=== PATIENT | female | born 1965 ===

== ENCOUNTER 2017-10-10 09:30 | Emergency (ER) | payer MEDICAID ==
[2017-10-10 09:35] VITALS: TEMP 98.3
[2017-10-10 09:37] VITALS: BMI 26.0
--- NOTE | 2017-10-10 10:11 | ED PDOC ---
HPI: Eye Injury/Pain Time Seen by Provider: 10/10/17 09:47 Chief Complaint (Nursing): Eye Problem Chief Complaint (Provider): Eye Problem History Per: Patient History/Exam Limitations: no limitations Onset/Duration Of Symptoms: Days (2) Associated Symptoms: denies: Decreased Vision Additional Complaint(s): 52 years old female with history of hypercholesteremia presents to the ED for evaluation of redness to right eye corner onset 2 days. Patient reports she has been taking daily Aspirin as recommended by a pharmacist. She also complains of right sided headache and left shoulder pain. Patient denies any trauma, change in vision. weakness or numbness. PMD: non provided Past Medical History Reviewed: Historical Data, Nursing Documentation, Vital Signs Vital Signs: Last Vital Signs Temp 98.3 F 10/10/17 09:35 Pulse 61 10/10/17 09:35 Resp 18 10/10/17 09:35 BP 108/69 10/10/17 09:35 Pulse Ox 98 10/10/17 09:35 - Medical History PMH: Hypercholesterolemia - Surgical History Surgical History: No Surg Hx - Family History Family History: States: Unknown Family Hx - Social History Current smoker - smoking cessation education provided: No Alcohol: None Drugs: Denies - Immunization History Hx Tetanus Toxoid Vaccination: No Hx Influenza Vaccination: Yes Hx Pneumococcal Vaccination: No - Home Medications Home Medications: Ambulatory Orders Medication Instructions Recorded Naproxen [Naprosyn] 500 mg PO Q12H #20 tab 10/10/17 Tobramycin 0.3% [Tobramycin 5 Ml] 1 drop OP TID #1 bottle 10/10/17 - Allergies Allergies/Adverse Reactions: Allergies Allergy/AdvReac Type Severity Reaction Status Date / Time Unobtainable Allergy Verified 10/10/17 10:04 Review of Systems ROS Statement: Except As Marked, All Systems Reviewed And Found Negative Eyes: Positive for: Redness (right eye corner). Negative for: Vision Change, Other (trauma) Cardiovascular: Negative for: Chest Pain Musculoskeletal: Positive for: Shoulder Pain (left) Neurological: Positive for: Headache (right sided). Negative for: Weakness, Numbness Physical Exam - Reviewed Nursing Documentation Reviewed: Yes Vital Signs Reviewed: Yes - Physical Exam Appears: Positive for: Non-toxic, No Acute Distress Head Exam: Positive for: ATRAUMATIC, NORMOCEPHALIC Eye Exam: Positive for: EOMI, PERRL, Other (Right eye scleral hemorrhage lateral aspect) Cardiovascular/Chest: Positive for: Regular Rate, Rhythm. Negative for: Murmur Respiratory: Positive for: Normal Breath Sounds. Negative for: Respiratory Distress Gastrointestinal/Abdominal: Positive for: Normal Exam, Soft. Negative for: Tenderness Extremity: Positive for: Normal ROM. Negative for: Swelling Neurologic/Psych: Positive for: Alert, Oriented (x3) - ECG O2 Sat by Pulse Oximetry: 98 (RA) Pulse Ox Interpretation: Normal Medical Decision Making Medical Decision Making: Time: 1004 Initial Plan: --CT Head W/O Contrast --EKG Scribe Attestation: Documented by Yu Burciaga, acting as a scribe for Marcellus Us MD. Provider Scribe Attestation: All medical record entries made by the Scribe were at my direction and personally dictated by me. I have reviewed the chart and agree that the record accurately reflects my personal performance of the history, physical exam, medical decision making, and the department course for this patient. I have also personally directed, reviewed, and agree with the discharge instructions and disposition. Disposition - Clinical Impression Clinical Impression: Scleral hemorrhage, Shoulder strain - Patient ED Disposition Is Patient to be Admitted: No Counseled Patient/Family Regarding: Studies Performed, Diagnosis, Need For Followup, Rx Given - Disposition Referrals: Cyrus Trevizo MD [Medical Doctor] - [facility] [Outside] Disposition: Routine/Home Disposition Time: 11:01 Condition: FAIR Prescriptions: Naproxen [Naprosyn] 500 mg PO Q12H #20 tab Tobramycin 0.3% [Tobramycin 5 Ml] 1 drop OP TID #1 bottle Instructions: Subconjunctival Hemorrhage, Muscle Strain Forms: [employer] (Syrian) Print Language: CONGOLESE
--- NOTE | 2017-10-10 10:43 | CT ---
Date of service: 10/10/2017 PROCEDURE: CT HEAD WITHOUT CONTRAST. HISTORY: r/o bleed COMPARISON: None available. TECHNIQUE: Axial computed tomography images were obtained through the head/brain without intravenous contrast. Radiation dose: Total exam DLP = 711.34 mGy-cm. This CT exam was performed using one or more of the following dose reduction techniques: Automated exposure control, adjustment of the mA and/or kV according to patient size, and/or use of iterative reconstruction technique. FINDINGS: HEMORRHAGE: No intracranial hemorrhage. BRAIN: Questionable few tiny chronic bilateral basal nuclei lacunar type infarcts versus artifact. . Note that the possibility of small hyperacute infarct cannot be excluded on this exam. No obvious parenchymal nor extra-axial mass or collection seen on noncontrast study. Ventricular and sulcal size within range of normal for this patient's stated age. VENTRICLES: Unremarkable. No hydrocephalus. CALVARIUM: Unremarkable. PARANASAL SINUSES: Unremarkable as visualized. No significant inflammatory changes. MASTOID AIR CELLS: Unremarkable as visualized. No inflammatory changes. OTHER FINDINGS: None. IMPRESSION: No acute intracranial hemorrhage.
[2017-10-10 11:11] VITALS: BP 110/70; PULSE 70; RESP 16; O2SAT 100
--- NOTE | 2017-10-10 17:13 | CARD ---
APPROVED REPORT Date of service: 10/10/2017 <Conclusion> Sinus bradycardia Otherwise normal ECG
== END 2017-10-10 11:10 | disposition home or self-care (01) ==
LOC: H.ER 09:30
DX: H11.31 Conjunctival hemorrhage, right eye (principal); S46.912A Strain of unspecified muscle, fascia and tendon at shoulder and upper arm level, left arm, initial encounter; Y92.89 Other specified places as the place of occurrence of the external cause; E78.00 Pure hypercholesterolemia, unspecified